=== PATIENT | male | born 1995 | race Caucasian/White ===

== ENCOUNTER 2020-10-08 07:38 | Outpatient (REF) | payer OTHER, SELFPAY ==
[2020-10-08 07:57] LABS: COVID-19 Test Negative (Negative)
== END 2020-10-08 07:39 | disposition home or self-care (01) ==
LOC: HO.LAB 07:38
PROVIDERS: Visit Provider Internal Medicine
DX: Z20.822 Contact with and (suspected) exposure to COVID-19 (principal)
CPT/HCPCS: 36415; 87635; C9803

== ENCOUNTER 2020-11-19 07:39 | Outpatient (REF) | payer OTHER, SELFPAY | END 2020-11-19 07:40 | disposition home or self-care (01) | LOC: HO.LAB 07:39 | PROVIDERS: Visit Provider Internal Medicine | DX: Z20.822 Contact with and (suspected) exposure to COVID-19 (principal) | CPT/HCPCS: C9803; U0003; U0005 ==

== ENCOUNTER 2021-12-09 07:32 | Outpatient (REF) | payer OTHER, SELFPAY ==
[2021-12-09 08:08] LABS: COVID-19 Test Negative (Negative)
== END 2021-12-09 07:33 | disposition home or self-care (01) ==
LOC: HO.LAB 07:32
PROVIDERS: Visit Provider Internal Medicine
DX: Z20.822 Contact with and (suspected) exposure to COVID-19 (principal)
CPT/HCPCS: 87635; C9803